=== PATIENT | male | born 1985 | race African-American/Black ===

== ENCOUNTER 2020-04-04 13:43 | Emergency (ER) | payer SELFPAY ==
[~2020-04-04] VITALS: Ht 172.7 cm; Wt 72.6 kg
[2020-04-04] MEDS ORDERED: OLANZapine 5 MG ODT SL ONE (13:45)
[2020-04-04 13:48] VITALS: BP 119/66
--- NOTE | 2020-04-04 13:52 | NUR ---
BIBA FROM [facility] ORIGINALLY C/O CP THAT CHANGED INTO [facility] ON [address] BY [employer] OFFICER ANTONIO REPORTS PT IS HEARING VOICES TELLING HIM TO USE A RAZOR BLADE TO CUT HIMSELF HASNT BEEN TAKING SEROQUEL FOR 2 WEEKS .PT AWAKE , AOX3, AFIBRILE, AMBULATORY WITH STEADY GAIT, SCE, CBS BLF, FLAT SOFT NABS ABDOMEN. PMHX DEPRESSION
--- NOTE | 2020-04-04 13:53 | NUR ---
DR SEPULVEDA AT BEDSIDE EVALUATING PT.
[2020-04-04 14:04] LABS: BASOPHILS % (AUTO) 0.2 % (0.0-2.0); EOSINOPHILS # (AUTO) 0.2 K/uL (0-0.4); EOSINOPHILS % (AUTO) 5.2 % (0.0-4.0); HEMATOCRIT 46.1 % (36-52); LYMPHOCYTES # (AUTO) 1.6 K/uL (2.0-11.5); LYMPHOCYTES % (AUTO) 38.4 % (20.5-51.1); MEAN CORPUSCULAR HEMOGLOBIN 28 pg (27-31); MEAN CORPUSCULAR HGB CONC 32 g/dL (33-37); MEAN CORPUSCULAR VOLUME 87.4 fL (80-94); MONOCYTES # (AUTO) 0.6 K/uL (0.8-1.0); MONOCYTES % (AUTO) 13.5 % (1.7-9.3); NEUTROPHILS # (AUTO) 1.8 K/uL (1.8-7.7); NEUTROPHILS % (AUTO) 42.7 % (42.2-75.2); PLATELET COUNT (AUTO) 287 K/uL (140-450); RED BLOOD CELL COUNT(AUTO) 5.28 MIL/uL (4.20-6.10); RED CELL DISTRIBUTION WIDTH 14.4 % (11.6-13.7); WHITE BLOOD COUNT (AUTO) 4.2 K/uL (4.8-10.8)
--- NOTE | 2020-04-04 14:23 | NUR ---
PT COMFORTABLE IN BED SLEEPING ,SITTER AT BEDSIDE, SIDE RAILS UP X1 AND LOCK.
[2020-04-04 14:31] LABS: ALBUMIN 3.7 g/dL (3.4-5.0); ANION GAP 14.2 (8-16); ASPARTATE AMINOTRANSFERASE 33 U/L (15-37); CARBON DIOXIDE 27.2 mmol/L (21-32); CHLORIDE 104 mmol/L (98-107); GFR ARICAN-AMERICAN 109 mL/min (>90); GLUCOSE 98 mg/dL (74-106); POTASSIUM 4.4 mmol/L (3.5-5.1); SODIUM SERUM 141 mmol/L (136-145); TOTAL BILIRUBIN 1.3 mg/dL (0.0-1.0); UREA NITROGEN, BLOOD 14 mg/dL (7-18)
[2020-04-04 14:36] LABS: ACETAMINOPHEN < 0.5 ug/ml (10-30); SALICYLATE < 2.8 mg/dL (2.8-20.0)
[2020-04-04 16:03] LABS: BARBITURATE, URINE NEGATIVE ng/ml (NEG <=200); BENZODIAZEPINE, URINE NEGATIVE ng/mL (NEG <=200); CANNABINOID, URINE POSITIVE ng/mL (NEG <=50); COCAINE, URINE NEGATIVE ng/mL (NEG <=300); OPIATE, URINE NEGATIVE ng/mL (NEG <=2000); PHENCYCLIDINE SCREEN,URINE NEGATIVE ng/mL (NEG <=25)
--- NOTE | 2020-04-04 17:01 | NUR ---
Received packet without facesheet. [facility] will start working on placement as soon as facesheet is received.
--- NOTE | 2020-04-04 17:09 | NUR ---
Packet referred to [facility].
--- NOTE | 2020-04-04 17:19 | NUR ---
PT COMFORTABLE IN BE ASLEEP. SIDE RAILS UP X1 , SITTER AT BESIDE.
--- NOTE | 2020-04-04 17:45 | NUR ---
TELEPSYCH INITIATED, AWAITING CONTACT. CONNECT ID [id number]
--- NOTE | 2020-04-04 17:55 | NUR ---
pt eating in bed and tele psyche starting.
--- NOTE | 2020-04-04 19:05 | NUR ---
report given to ryan echols ,pt with stable vital sign, pt asleep.side rails up x2 and lock.
--- NOTE | 2020-04-04 19:06 | NUR ---
REPORT RECEIVED FROM KENJI RN, TRANSFER OF CARE AT THIS TIME. PT RESTING WITH EYES CLOSED, BREATHING EVEN AND UNLABORED
--- NOTE | 2020-04-04 20:42 | NUR ---
PATIENT RESTING WITH EYES CLOSED, BREATHING EVEN AND UNLABORED
--- NOTE | 2020-04-04 20:50 | NUR ---
Telepscyhe report received, given to ERMNona. Per ERMD Patient is okay for discharge and will be discharging him soon.
[2020-04-04 20:55] VITALS: BP 113/81
--- NOTE | 2020-04-04 20:55 | NUR ---
Patient given written and verbal discharge instructions and verbalizes understanding. Given copies of tests performed during visit. Patient is awake, alert and oriented. Ambulatory with steady gait. Pt given [facility] packet for nearby shelters. Refuses offer of [facility] placement. Given list of available shelters in surrounding areas. Patient given sandwitch and food bag for homeless. Pt clothes appropriate for weather. Belongings given back from security.
--- NOTE | 2020-04-04 20:55 | NUR ---
Patient discharged with v/s stable. Written and verbal after care instructions about psychosis given and explained. Patient alert, oriented and verbalized understanding of instructions. Ambulatory with steady gait. All questions addressed prior to discharge. ID band removed. Patient advised to follow up with PMD. Rx of Seroquel given. Patient educated on indication of medication including possible reaction and side effects. Opportunity to ask questions provided and answered.
--- NOTE | 2020-04-04 21:20 | NUR ---
Maria G morris in [facility] - 04/04/20 at 2126 by MEDJoanieJ PATIENT HAS LEFT FACILITY AT THIS TIME.
--- NOTE | 2020-04-04 21:25 | NUR ---
PATIENT HAS LEFT FACILITY AT THIS TIME.
== END 2020-04-04 20:55 | disposition home or self-care (01) ==
LOC: EDBD 13:43 → MED 13:43
DX: F15.20 Other stimulant dependence, uncomplicated (principal); R45.851 Suicidal ideations
CPT/HCPCS: 36415; 80053; 80305; 85025; 99285; G0480; G0482

== ENCOUNTER 2020-04-05 04:19 | Emergency (ER) | payer SELFPAY ==
[~2020-04-05] VITALS: Ht 177.8 cm; Wt 65.8 kg
--- NOTE | 2020-04-05 04:55 | NUR ---
PT CALLED FOR TRIAGE AND NO ANSWER. LEFT WITHOUT BEING SEEN.
--- NOTE | 2020-04-05 05:01 | NUR ---
PATIENT LEFT WITHOUT BEING SEEN BY DR. ARMAS. NO FURTHER CARE PROVIDED FOR PATIENT.
== END 2020-04-05 05:01 | disposition left against medical advice (07) ==
LOC: MED 04:19
DX: Z53.21 Procedure and treatment not carried out due to patient leaving prior to being seen by health care provider (principal)
CPT/HCPCS: 99283; 99284